=== PATIENT | female | born 1950 | race Caucasian/White ===

== ENCOUNTER 2019-02-21 19:28 | Observation (INO) | payer MEDICARE, BC ==
[2019-02-21] MEDS ORDERED: Lidocaine 1% 30 ML SDV INJECT ONE (19:37)
[2019-02-21] MEDS ORDERED: Acetaminophen/HYDROcodone 325-5 MG Tab PO ONE (19:44)
[2019-02-21] MEDS ORDERED: Diphtheria,Pertussis(Acell),Tetanus Vaccine 0.5 ML Syringe IM ONE (20:15)
--- NOTE | 2019-02-21 20:34 | EDM.PDOC ---
ED HPI GENERAL MEDICAL PROBLEM - General Chief Complaint: Laceration Stated Complaint: FALL Time Seen by Provider: 02/21/19 19:31 Source of Information: Reports: Patient, EMS History Limitations: Reports: No Limitations - History of Present Illness INITIAL COMMENTS - FREE TEXT/NARRATIVE: Pt. states that she tripped coming out of the [facility] after work. She fell onto the R side of her head/face and also injured her L wrist. She thinks she fell on an outstretched hand. Denies any LOC. No neck pain. No chest pain, shortness of breath, palpitations, or other symptoms prior to the fall-it was purely mechanical in nature. She complains of headache, R sided head/facial pain, and pain to her L wrist. Denies any vision loss or change. No nausea or vomiting. She did not attempt to ambulate. EMS was summoned. Onset: Today Location: Reports: Head, Face, Upper Extremity, Left Quality: Reports: Dull, Sharp, Throbbing Associated Symptoms: Reports: Headaches. Denies: Confusion, Chest Pain, Diaphoresis, Nausea/Vomiting, Seizure, Shortness of Breath, Syncope Treatments WEARING APPAREL SHAKER: Reports: Cold Therapy Other Treatments WEARING APPAREL SHAKER: Ice applied by EMS prior to arrival Right Face/Facial Pain Score (Numeric/FACES): 10 Left Wrist Pain Score (Numeric/FACES): 10 Right Knee Pain Score (Numeric/FACES): 10 - Related Data Allergies Allergy/AdvReac Type Severity Reaction Status Date / Time ampicillin Allergy Cannot Verified 02/21/19 20:24 Remember gluten Allergy Cannot Verified 02/21/19 20:24 Remember nitrofurantoin Allergy Cannot Verified 02/21/19 20:24 Remember Penicillins Allergy Cannot Verified 02/21/19 20:24 Remember Sulfa (Sulfonamide Allergy Cannot Verified 02/21/19 20:24 Antibiotics) Remember sulfamethoxazole Allergy Cannot Verified 02/21/19 20:24 Remember Home Meds: Home Meds Calcium Carbonate/Vitamin D3 [Calcium 500 + Vit D 200 Caplet] 1 tab PO DAILY [History] Cholecalciferol (Vitamin D3) [Vitamin D] 3 cap PO DAILY 03/19/14 [History] Clobetasol [Temovate 0.05%] 1 applic TOP BID 03/19/14 [History] Cyanocobalamin (Vitamin B-12) [Vitamin B-12] 1 tab BUCCAL DAILY 03/19/14 [ History] Folic Acid 1 tab PO DAILY 03/19/14 [History] Magnesium Oxide 1 tab PO DAILY 03/19/14 [History] Meclizine [Antivert] 1 tab PO Q8H PRN 03/19/14 [History] Multivitamin [Multi Vitamin Daily] 1 tab PO DAILY 03/19/14 [History] Ondansetron [Zofran] 1 tab PO Q8H PRN 03/19/14 [History] Thiamine Mononitrate [Vitamin B-1] 1 tab PO DAILY 03/19/14 [History] Vitamin B Complex [B Complex] 1 tab PO DAILY 03/19/14 [History] Omeprazole Magnesium [Prilosec Otc] 40 mg PO DAILY 02/21/19 [History] Past Medical History - Past Surgical History GI Surgical History: Reports: Other (See Below) Other GI Surgeries/Procedures: gastric bypass Social & Family History - Family History Family Medical History: Noncontributory - Tobacco Use Smoking Status *Q: Former Smoker Years of Tobacco use: 1 Packs/Tins Daily: 0.2 Used Tobacco, but Quit: Yes Month/Year Tobacco Last Used: 40 years ago - Caffeine Use Caffeine Use: Reports: None - Recreational Drug Use Recreational Drug Use: No ED ROS GENERAL - Review of Systems Review Of Systems: See Below Constitutional: Reports: No Symptoms HEENT: Reports: Other (see above) Respiratory: Reports: No Symptoms Cardiovascular: Reports: No Symptoms Endocrine: Reports: No Symptoms GI/Abdominal: Reports: No Symptoms : Reports: No Symptoms Musculoskeletal: Reports: No Symptoms Skin: Reports: No Symptoms Neurological: Reports: No Symptoms Psychiatric: Reports: No Symptoms Hematologic/Lymphatic: Reports: No Symptoms Immunologic: Reports: No Symptoms ED EXAM, GENERAL - Physical Exam Exam: See Below Exam Limited By: No Limitations General Appearance: Alert, WD/WN, No Apparent Distress Eye Exam: Bilateral Eye: EOMI, Normal Fundi, Normal Inspection, PERRL Ears: Normal External Exam, Normal Canal, Hearing Grossly Normal, Normal TMs Nose: Normal Inspection, Normal Mucosa, No Blood Throat/Mouth: Normal Inspection, Normal Lips, Normal Teeth, Normal Gums, Normal Oropharynx, Normal Voice, No Airway Compromise Head: Facial Swelling, Facial Tenderness, Other (several lacerations to R side of face/temporal area. Largest is 3 cm stellate to R lateral eyebrow/temporal area, 4 other sub centimeter lacerations to area of R maxillary area.) Neck: Normal Inspection, Supple, Non-Tender, Full Range of Motion Respiratory/Chest: No Respiratory Distress, Lungs Clear, Normal Breath Sounds, No Accessory Muscle Use, Chest Non-Tender Cardiovascular: Normal Peripheral Pulses, Regular Rate, Rhythm, No Edema, No Gallop, No JVD, No Murmur, No Rub Peripheral Pulses: 4+: Radial (R) GI/Abdominal: Normal Bowel Sounds, Soft, Non-Tender, No Organomegaly, No Distention, No Abnormal Bruit, No Mass, Pelvis Stable (Female) Exam: Deferred Rectal (Female) Exam: Deferred Back Exam: Normal Inspection, Full Range of Motion Extremities: Joint Swelling, Arm Pain, Other (pain and swelling to L wrist. Increased pain with movement. Decreased ROM.) Neurological: Alert, Oriented, CN II-XII Intact, Normal Cognition, Normal Gait, Normal Reflexes, No Motor/Sensory Deficits Psychiatric: Normal Affect, Normal Mood Skin Exam: Warm, Dry, Intact, Normal Color, No Rash ED GENERAL MEDICAL PROCEDURES - Laceration/Wound Repair Right Forehead Lac/wound length in cm: 7 Appearance: Superficial Distal NVT: Neuro & Vascular Intact Anesthetic Type: Local Local Anesthesia - Lidocaine (Xylocaine): 1% Plain Local Anesthetic Volume: Other (7) Skin Prep: Chlorhexidine (Hibiciens), Saline Exploration/Debridement/Repair: Wound Explored, Moderate Debridement, Foreign Material Removed, Wound Margins Revised Closed with: Sutures Suture Size: 5-0 # of Sutures: 7 Suture Type: Nylon Sterile Dressing Applied: Provider Complications: No Progress/Comments: Total of 7 sutures were placed, 3 in the largest laceration and one each in the 4 other small lacerations. The largest laceration was debrided of devitalized, macerated tissue. Course - Vital Signs Last Recorded V/S: Last Vital Signs Temp 36.2 C 02/21/19 20:57 Pulse 75 02/21/19 20:57 Resp 16 02/21/19 20:57 BP 146/68 H 02/21/19 20:57 Pulse Ox 98 02/21/19 20:57 - Orders/Labs/Meds Orders: Active Orders 24 hr Category Date Time Status Patient Status [ADT] Routine ADT 02/21/19 21:23 Ordered Vaccines to be Administered [RC] PER UNIT ROUTINE Care 02/21/19 20:15 Active Head wo Cont [CT] Stat Exams 02/21/19 19:37 Taken Max Facial Sinus wo Cont [CT] Stat Exams 02/21/19 20:14 Taken Wrist Comp Min 3V Lt [CR] Stat Exams 02/21/19 19:38 Taken Meds: Medications Discontinued Medications Generic Name Dose Route Start Last Admin Trade Name Kaylin PRN Reason Stop Dose Admin Hydrocodone Bitart/Acetaminophen 1 tab 02/21/19 19:44 02/21/19 19:49 [place] 325-5 Mg PO 02/21/19 19:45 1 tab ONETIME ONE Administration Diphtheria/Tetanus/Acell Pertussis 0.5 ml 02/21/19 20:15 02/21/19 20:59 Adacel IM 02/21/19 20:16 0.5 ml .ONCE ONE Administration Lidocaine HCl 30 ml 02/21/19 19:37 02/21/19 19:53 Xylocaine-Mpf 1% INJECT 02/21/19 19:38 7 ml ONETIME ONE Administration - Radiology Interpretation Free Text/Narrative:: CT brain and facial bone are negative plain films of L wrist show non-displaced distal R radius fx. Departure - Departure Time of Disposition: 21:27 Disposition: Refer to Observation Clinical Impression: Closed head injury, Laceration, Radius fracture - Discharge Information Referrals: Mariela Poe MEDICAL EDITOR [Primary Care Provider] - Forms: ED Department Discharge - My Orders Last 24 Hours: My Active Orders 02/21/19 19:37 Head wo Cont [CT] Stat 02/21/19 19:38 Wrist Comp Min 3V Lt [CR] Stat 02/21/19 20:14 Max Facial Sinus wo Cont [CT] Stat 02/21/19 20:15 Vaccines to be Administered [RC] PER UNIT ROUTINE 02/21/19 21:23 Patient Status [ADT] Routine - Assessment/Plan Last 24 Hours: My Active Orders 02/21/19 19:37 Head wo Cont [CT] Stat 02/21/19 19:38 Wrist Comp Min 3V Lt [CR] Stat 02/21/19 20:14 Max Facial Sinus wo Cont [CT] Stat 02/21/19 20:15 Vaccines to be Administered [RC] PER UNIT ROUTINE 02/21/19 21:23 Patient Status [ADT] Routine Plan: Pt. feels that she will not be able to take care of herself tonight. She has not one who can stay with her. She states that she has a headache and states that she lives alone in a residence with steps. Will admit patient observation. She is a code 1. Tetanus was updated. Will apply splint to L wrist. [place] as needed for pain control. All questions were answered.
[2019-02-21] MEDS ORDERED: Ondansetron 4 MG Tab.DIS PO PRN (21:59)
[2019-02-21] MEDS ORDERED: Meclizine 25 MG Tab PO PRN (21:59)
[2019-02-21] MEDS ORDERED: Ibuprofen 200 MG Tab PO PRN (22:01)
[2019-02-22] MEDS: Acetaminophen/HYDROcodone 325-10 MG Tab PO PRN ×3 (00:34→12:07)
[2019-02-22] MEDS: Thiamine 100 MG Tab PO SCH ×2 (00:36→07:37)
[2019-02-22] MEDS ORDERED: Omeprazole 20 MG Cap.CR PO SCH (07:00)
[2019-02-22] MEDS ORDERED: Multivitamin, Stress Formula with Zinc Tab PO SCH (08:00)
[2019-02-22] MEDS ORDERED: Folic Acid 1 MG Tab PO SCH (08:00)
[2019-02-22] MEDS ORDERED: Cyanocobalamin (Vitamin B12) 1,000 MCG Tab PO SCH (08:00)
[2019-02-22] MEDS ORDERED: Magnesium Oxide 400 MG Tab PO SCH (08:00)
[2019-02-22] MEDS ORDERED: Cholecalciferol (Vitamin D3) 25 MCG Tab PO SCH (08:00)
[2019-02-22] MEDS ORDERED: Calcium Carbonate/Vitamin D3 1250 MG-200 Unit Tab PO SCH (08:00)
[2019-02-22] MEDS ORDERED: Vitamin B Complex Tab.ER PO SCH (08:00)
--- NOTE | 2019-02-22 08:38 | PCM.DCSUM1 ---
Discharge Summary - Hospital Course HPI Initial Comments: Patient presented to the ED at [facility] last evening after she feel. Patient states she fell while attempting to get the keys out of her purse to unlock her car. She does not know what she may have tripped on. Patient did his the right side of her face, causing two separate lacerations. She thinks she fell on an outstretched hand. Denies any LOC. No neck pain. No chest pain, shortness of breath, palpitations, or other symptoms prior to the fall-it was purely mechanical in nature. She complains of headache, R sided head/facial pain , and pain to her L wrist. She denies any back pain. No issues with urination or BM's. Denies any vision loss or change. No nausea or vomiting. She did not attempt to ambulate. Patient called EMS using her cell phone. Diagnosis: Stroke: No Modified Renville Scale: No Symptoms at All Modified Renville Scale Score: 0 - Discharge Data Discharge Date: 02/22/19 Discharge Disposition: Home, Self-Care 01 Condition: Good - Referral to Home Health Primary Care Physician: Mariela Poe RN PRODUCTION - Discharge Diagnosis/Problem(s) (1) Closed head injury SNOMED Code(s): 214778771370 ICD Code: S09.90XA - UNSPECIFIED INJURY OF HEAD, INITIAL ENCOUNTER Status: Acute Priority: High Current Visit: Yes Onset Date: ~02/21/19 Qualifiers: Encounter type: initial encounter Qualified Code(s): S09.90XA - Unspecified injury of head, initial encounter (2) Laceration SNOMED Code(s): 336974559 ICD Code: [id number] - Status: Acute Priority: High Current Visit: Yes Onset Date: ~02/21/19 (3) Radius fracture SNOMED Code(s): 89587168 ICD Code: S52.90XA - UNSP FRACTURE OF UNSP FOREARM, INIT FOR CLOS FX Status : Acute Current Visit: Yes Onset Date: ~02/21/19 Qualifiers: Encounter type: initial encounter Radius location: distal Fracture type: closed Fracture morphology: other intra-articular Laterality: left Qualified Code(s): S52.572A - Other intraarticular fracture of lower end of left radius, initial encounter for closed fracture (4) Encounter related to worker's compensation claim SNOMED Code(s): 991609175 ICD Code: Z02.6 - ENCOUNTER FOR EXAMINATION FOR INSURANCE PURPOSES Status: Acute Priority: Low Current Visit: Yes Onset Date: ~02/21/19 - Patient Summary/Data Operative Procedure(s) Performed: None Consults: Orthopedics Labs Pending at D/C: None Recommended Follow-up Testing/Procedures: None Hospital Course: Patient remained hemodynamically stable. No fevers. Pain under good control. Patient independent in room. No issues with urination or BM's. Patient slept well overnight. - Patient Instructions Diet: Heart Healthy Diet (Gluten Free) Activity: As Tolerated, Elevate Extremity, No Lifting Over 10 Pounds, No Strenuous Activities Driving: Do Not Drive Showering/Bathing: May Shower Notify Provider of: Fever, Increased Pain, Swelling and Redness - Discharge Plan *PRESCRIPTION DRUG MONITORING PROGRAM REVIEWED*: Not Applicable *COPY OF PRESCRIPTION DRUG MONITORING REPORT IN PATIENT IRAIS: Not Applicable Home Medications: Home Meds Calcium Carbonate/Vitamin D3 [Calcium 500-Vit D3 200 Caplet] 1 tab PO DAILY [History] Cholecalciferol (Vitamin D3) [Vitamin D3] 3 cap PO DAILY 03/19/14 [History] Clobetasol [Temovate 0.05%] 1 applic TOP BID 03/19/14 [History] Cyanocobalamin (Vitamin B-12) [Vitamin B-12] 1 tab BUCCAL DAILY 03/19/14 [ History] Folic Acid 1 tab PO DAILY 03/19/14 [History] Magnesium Oxide 1 tab PO DAILY 03/19/14 [History] Meclizine [Antivert] 1 tab PO Q8H PRN 03/19/14 [History] Multivitamin [Multi-Vitamin Daily] 1 tab PO DAILY 03/19/14 [History] Ondansetron [Zofran] 1 tab PO Q8H PRN 03/19/14 [History] Thiamine Mononitrate [Vitamin B-1] 1 tab PO DAILY 03/19/14 [History] Vitamin B Complex [B Complex] 1 tab PO DAILY 03/19/14 [History] Omeprazole Magnesium [Prilosec Otc] 40 mg PO DAILY 02/21/19 [History] Oxygen Therapy Mode: Room Air Patient Handouts: Radial Fracture, Cast or Splint Care, Adult Referrals: Mariela Poe RN PRODUCTION [Primary Care Provider] - - Discharge Summary/Plan Comment DC Time >30 min.: No Discharge Summary/Plan Comment: Patient will be discharge home today. Discussed fracture and splint care extensively. Use narcotic pain medication sparingly. Will have patient follow up with PCP in one week; will need to see Ortho PALAK. Advised she can use the walk-in clinic at [facility]. Patient discharged in stable condition. Patient expresses no concerns or questions to time of discharge. - General Info Date of Service: 02/22/19 Admission Dx/Problem (Free Text: Closed Head Injury without LOC Facial Lacerations Distal left radius fracture with likely intra-articular extension Subjective Update: Patient offers no specific concerns this morning. She states she is currently pain free. She denies any left wrist pain at this time. She states she does not have any neck or back pain. She is ambulating independently in the room. She denies any problems with urination or BM's. She states she is feeling good overall. Functional Status: Reports: Pain Controlled, Tolerating Diet, Ambulating, Urinating. Denies: New Symptoms Numeric/FACES Score: 0 - Review of Systems General: Denies: Fever, Chills Pulmonary: Denies: Shortness of Breath, Cough Cardiovascular: Denies: Chest Pain, Palpitations Gastrointestinal: Denies: Abdominal Pain, Nausea, Vomiting Musculoskeletal: Denies: Neck Pain, Back Pain Skin: Reports: No Symptoms Neurological: Reports: No Symptoms - Patient Data Vitals - Most Recent: Last Vital Signs Temp 97.9 F 02/22/19 05:57 Pulse 66 02/22/19 05:57 Resp 16 02/22/19 05:57 BP 138/70 02/22/19 05:57 Pulse Ox 97 02/22/19 05:57 Weight - Most Recent: 251 lb I&O - Last 24 hours: Intake & Output 02/21/19 02/22/19 02/22/19 22:59 06:59 14:59 Intake Total 400 Output Total 2000 Balance -1600 Med Orders - Current: Current Medications Hydrocodone Bitart/Acetaminophen ([place] 325-10 Mg) 1 tab PO Q4H PRN PRN Reason: Pain (severe 7-10) Last Admin: 02/22/19 06:07 Dose: 1 tab Calcium Carbonate (Calcium Carbonate/Vitamin D 1250 Mg-200 Unit) 1 tab PO DAILY [facility] Last Admin: 02/22/19 07:36 Dose: 1 tab Cholecalciferol (Vitamin D3) 75 mcg PO DAILY [facility] Last Admin: 02/22/19 07:36 Dose: 75 mcg Cyanocobalamin (Vitamin B12) 1,000 mcg PO DAILY [facility] Last Admin: 02/22/19 07:37 Dose: 1,000 mcg Folic Acid (Folic Acid) 1 mg PO DAILY [facility] Last Admin: 02/22/19 07:37 Dose: 1 mg Ibuprofen (Motrin) 400 mg PO Q4H PRN PRN Reason: Pain/Fever Magnesium Oxide (Magnesium Oxide) 400 mg PO DAILY [facility] Last Admin: 02/22/19 07:37 Dose: 400 mg Meclizine HCl (Antivert) 25 mg PO Q8H PRN PRN Reason: Dizziness Omeprazole (Omeprazole) 40 mg PO DAILY@0700 [facility] Last Admin: 02/22/19 06:02 Dose: 40 mg Ondansetron HCl (Zofran Odt) 4 mg PO Q8H PRN PRN Reason: Nausea Thiamine HCl (Vitamin B-1) 100 mg PO DAILY [facility] Last Admin: 02/22/19 07:37 Dose: 100 mg Vitamin B Complex (Balanced B-50) 1 each PO DAILY [facility] Last Admin: 02/22/19 07:37 Dose: 1 each Vitamin B Complex/Vit C/Vit E/Zinc (Stress Formula With Zinc) 1 tab PO DAILY [facility] Last Admin: 02/22/19 07:36 Dose: 1 tab Discontinued Medications Hydrocodone Bitart/Acetaminophen ([place] 325-5 Mg) 1 tab PO ONETIME ONE Stop: 02/21/19 19:45 Last Admin: 02/21/19 19:49 Dose: 1 tab Diphtheria/Tetanus/Acell Pertussis (Adacel) 0.5 ml IM .ONCE ONE Stop: 02/21/19 20:16 Last Admin: 02/21/19 20:59 Dose: 0.5 ml Lidocaine HCl (Xylocaine-Mpf 1%) 30 ml INJECT ONETIME ONE Stop: 02/21/19 19:38 Last Admin: 02/21/19 19:53 Dose: 7 ml - Exam Quality Assessment: Denies: Skin Breakdown General: Reports: Alert, Oriented, Cooperative, No Acute Distress Lungs: Reports: Clear to Auscultation, Normal Respiratory Effort Cardiovascular: Reports: Regular Rate, Regular Rhythm GI/Abdominal Exam: Normal Bowel Sounds, Soft, Non-Tender Back Exam: Reports: Normal Inspection Skin: Reports: Warm, Dry, Intact Wound/Incisions: Reports: Dressing Dry and Intact, No Drainage Neurological: Reports: No New Focal Deficit *Q Meaningful Use (DIS) - VTE *Q VTE Mechanical Contraindications *Q: At Risk for Falls
[2019-02-22] MEDS ORDERED: Take Home: Acetaminophen/HYDROcodone 325-5 MG, 5 Tab Pack PO ONE (09:01)
--- NOTE | 2019-02-22 09:22 | CR ---
[id number] RAD/RAD Wrist Left 3V Min EXAM: 4 VIEWS LEFT WRIST. INDICATION: FALL COMPARISON: None. DISCUSSION: Acute impacted fracture of the distal left radius. There appears to be a fracture component involving the intra-articular aspect of the radiocarpal joint. No other fractures are identified. Generalized osseous demineralization. IMPRESSION: 1. Acute fracture of the distal radius as described above. Jake Sales DO 02/22/19 0921 Thank you for allowing us to participate in the care of your patient.
--- NOTE | 2019-02-22 09:34 | CT ---
[id number] CT/CT Head WO IV EXAM: CT Head WO IV CLINICAL DATA: FELL HIT HEAD COMPARISON STUDY: None FINDINGS: No intracranial hemorrhage, extra-axial fluid collection, mass, or acute ischemia. Generalized parenchymal atrophy with scattered areas of nonspecific white matter disease, commonly seen as sequela of chronic microvascular ischemia. Right supraorbital soft tissue hematoma/edema without evidence of underlying fracture. Paranasal sinuses and mastoid air cells are clear. IMPRESSION: No acute intracranial findings. Jake Sales DO 02/22/19 0933 Thank you for allowing us to participate in the care of your patient.
--- NOTE | 2019-02-22 09:36 | CT ---
[id number] CT/CT Facial Bones WO IV EXAM: CT FACIAL BONES. INDICATION: FALL COMPARISON: None. DISCUSSION: No facial bone fracture or suspicious osseous lesion identified. Mild mucosal thickening of the maxillary sinuses and anterior ethmoid air cells. The remaining paranasal sinuses and mastoid air cells are well aerated and clear. The nasal septum is deviated to the right with a septal spur. The orbits are unremarkable. Right supraorbital soft tissue edema/hematoma. IMPRESSION: 1. No evidence of acute facial bone fracture. Jake Sales DO 02/22/19 0935 Thank you for allowing us to participate in the care of your patient.
== END 2019-02-22 13:45 | disposition home or self-care (01) ==
LOC: VM.ED 19:28 → VM.MS 21:23
PROVIDERS: ADMIT Physician Assistant; ATTEND Physician Assistant
DX: S09.90XA Unspecified injury of head, initial encounter (principal); S01.81XA Laceration without foreign body of other part of head, initial encounter; S52.572A Other intraarticular fracture of lower end of left radius, initial encounter for closed fracture; Z02.6 Encounter for examination for insurance purposes; Z79.899 Other long term (current) drug therapy; W18.39XA Other fall on same level, initial encounter
CPT/HCPCS: 12014; 12053; 70450; 70486; 73110; 90471; 90715; 99217; 99220; 99285; A9270; G0378; J2001

== ENCOUNTER 2021-09-17 12:49 | Emergency (ER) | payer MEDICARE, BC, OTHER | END 2021-09-17 13:26 | disposition home or self-care (01) | LOC: VM.ED 12:49 | DX: M72.2 Plantar fascial fibromatosis (principal); Z88.1 Allergy status to other antibiotic agents; Z88.0 Allergy status to penicillin; Z91.018 Allergy to other foods; Z88.2 Allergy status to sulfonamides; Z79.899 Other long term (current) drug therapy | CPT/HCPCS: 99283 ==

== ENCOUNTER 2023-01-12 13:16 | Emergency (ER) | payer OTHER, MEDICARE, BC | END 2023-01-12 14:33 | disposition home or self-care (01) | LOC: VM.ED 13:16 | DX: S09.90XA Unspecified injury of head, initial encounter (principal); Z88.0 Allergy status to penicillin; Z88.2 Allergy status to sulfonamides; Z88.1 Allergy status to other antibiotic agents; Z91.018 Allergy to other foods; W01.0XXA Fall on same level from slipping, tripping and stumbling without subsequent striking against object, initial encounter | CPT/HCPCS: 70450; 72125; 99283 ==

== ENCOUNTER 2024-03-02 10:19 | Day surgery (SDC) | payer MEDICARE, BC ==
[2024-03-02] MEDS ORDERED: fentaNYL 100 MCG/2 ML SDV ONE (10:20)
[2024-03-02] MEDS ORDERED: Propofol 200 MG/20 ML SDV ONE ×2 (10:20→11:38)
[2024-03-02] MEDS: Lactated Ringers 1,000 ML IV SCH (10:36)
== END 2024-03-02 13:15 | disposition home or self-care (01) ==
LOC: VM.SDS 10:19
PROVIDERS: ATTEND Surgery
DX: Z12.11 Encounter for screening for malignant neoplasm of colon (principal); R19.5 Other fecal abnormalities; D12.6 Benign neoplasm of colon, unspecified; K57.30 Diverticulosis of large intestine without perforation or abscess without bleeding; K21.9 Gastro-esophageal reflux disease without esophagitis; I12.9 Hypertensive chronic kidney disease with stage 1 through stage 4 chronic kidney disease, or unspecified chronic kidney disease; N18.4 Chronic kidney disease, stage 4 (severe); G30.1 Alzheimer's disease with late onset; F02.B0 Dementia in other diseases classified elsewhere, moderate, without behavioral disturbance, psychotic disturbance, mood disturbance, and anxiety; N25.81 Secondary hyperparathyroidism of renal origin; Z79.899 Other long term (current) drug therapy
CPT/HCPCS: 00811; 99100; J2704; J3010; J7120

== ENCOUNTER 2024-11-30 10:20 | Day surgery (SDC) | payer MEDICARE, BC ==
[2024-11-30] MEDS ORDERED: Propofol 200 MG/20 ML SDV ONE ×2 (10:30→11:40)
[2024-11-30] MEDS ORDERED: fentaNYL 100 MCG/2 ML SDV ONE (10:30)
[2024-11-30] MEDS: Lactated Ringers 1,000 ML IV SCH (10:37)
== END 2024-11-30 12:52 | disposition home or self-care (01) ==
LOC: VM.SDS 10:20
PROVIDERS: ATTEND Surgery
DX: Z12.11 Encounter for screening for malignant neoplasm of colon (principal); R19.5 Other fecal abnormalities; I12.9 Hypertensive chronic kidney disease with stage 1 through stage 4 chronic kidney disease, or unspecified chronic kidney disease; N18.4 Chronic kidney disease, stage 4 (severe); D63.1 Anemia in chronic kidney disease; K21.9 Gastro-esophageal reflux disease without esophagitis; E66.9 Obesity, unspecified; Z88.1 Allergy status to other antibiotic agents; Z88.0 Allergy status to penicillin; Z88.8 Allergy status to other drugs, medicaments and biological substances; Z88.2 Allergy status to sulfonamides; Z68.36 Body mass index [BMI] 36.0-36.9, adult; Z79.899 Other long term (current) drug therapy; Z86.0100 Personal history of colon polyps, unspecified; Z87.891 Personal history of nicotine dependence; Z79.82 Long term (current) use of aspirin
CPT/HCPCS: 00811; 99100; G0121; J2704; J3010; J7120